=== PATIENT | female | born 1960 | race Caucasian/White ===

== ENCOUNTER 2017-02-13 23:50 | Inpatient (IN) | payer BC ==
--- NOTE | ~2017-02-13 | DS ---
Discharge Summary [facility] [address] [place]. [address] NAME: NILDA GUNN : 58 STATUS : DIS IN PAT#: [id number] AGE: 56 ADM/REG DATE : 02/13/17 MR#: [id number] REPORT SERV DATE: 02/20/17 DICTATED BY: ROSEANNA DHALIWAL DATE: 02/19/17 REPORT STATUS : Draft TRANSCRIBED BY: MODL DATE: 02/19/17 ADMISSION DATE: 02/13/2017 DISCHARGE DATE: 02/19/2017 REASON FOR ADMISSION: Sepsis secondary to Klebsiella pneumonia bacteremia possibly due to community-acquired pneumonia. HISTORY OF PRESENT ILLNESS: Please refer to Dr. Triston Altamirano's history and physical dated 02/14/2017 for complete details regarding the patient's admission. In brief, the patient was admitted to the Hospitalist Service for management of her sepsis and bacteremia. HOSPITAL COURSE: The patient had an uncomplicated hospital course. She was hospitalized about two months ago for SIRS, but no clear source of infection was identified. She was discharged in a stable condition. She returned about two months later. Chest x-ray in the ER did not demonstrate any infectious etiology. She had a CT angio of her chest, which showed several nonspecific nodules. Recommended three to six-month followup on the right along with cardiomegaly. There was no pulmonary embolism. The preliminary report was interpreted as multifocal infection. The patient was started on IV antibiotics. Blood cultures were obtained, which demonstrated Klebsiella pneumoniae, 2/[address] Tang was consulted and recommended turning her antibiotics to IV Ancef. She also had a CT scan of her abdomen and pelvis to determine if the origin of her Klebsiella was from a GI or source and the CT scan showed some minimal nonspecific infiltrate in the lingular region. There is otherwise no acute GI process. A urinalysis done on 02/13/2017 did not demonstrate any signs of infection. A PICC line was placed and Dr. Tang recommended continuing IV Ancef every eight hours until 02/26/2017. The patient also had issues with blood pressure control along with acute kidney injury. She was volume resuscitated. Her JC had resolved. Her sugars are all over the place. She did have an A1c of around 13%. She does have a known history of noncompliance with medications. She has reached maximal hospitalization, will be discharged home to complete IV antibiotics until 02/26/2017. DISCHARGE DIAGNOSES: 1. Sepsis secondary to Klebsiella pneumoniae bacteremia possibly due to a lingular pneumonia. 2. Chronic systolic heart failure that is compensated with an EF of 40% to 45%. 3. Acute kidney injury, now resolved. 4. Poorly-controlled insulin-dependent diabetes, A1c of around 14.5%. 5. Morbid obesity. 6. Medical noncompliance. PROCEDURES: Include CT scan of the abdomen and pelvis. CT angio of the chest. Consultation with Dr. Tang. PICC line placement. DISCHARGE MEDICATIONS: Include aspirin 81 mg once a day, Lipitor 40 mg at bedtime, Bumex 2 mg twice a day, carvedilol 3.125 mg twice a day, Ancef 2 g every eight hours to be completed on 02/26/2017, insulin Levemir 40 units at bedtime, insulin aspart 20 units before meals Discharge Summary [address] [address] NAME: NILDA GUNN : 58 STATUS : DIS IN PAT#: [id number] AGE: 56 ADM/REG DATE : 02/13/17 MR#: [id number] REPORT SERV DATE: 02/20/17 DICTATED BY: ROSEANNA DHALIWAL DATE: 02/19/17 REPORT STATUS : Draft TRANSCRIBED BY: MILA DATE: 02/19/17 along with p.r.n. snacks, magnesium oxide 400 mg once a day, potassium chloride 20 mEq twice a day, metformin 1000 mg twice a day, artificial tears. FOLLOWUP: The patient will follow up with [facility] for outpatient care on Thursday as initially scheduled and will continue her home IV antibiotics until 02/26/2017. Spending over 30 minutes in discharge planning and coordination of care on this patient. ISMAEL/MILA Roseanna Dhaliwal MD / [id number] CC: Roseanna Dhaliwal MD
--- NOTE | ~2017-02-13 | CN ---
Consultation Report [facility] [address] [place]. [address] NAME: NILDA GUNN : 58 STATUS : ADM Olesya PAT#: [id number] AGE: 56 ADM/REG DATE : 02/13/17 MR#: [id number] REPORT SERV DATE: 02/14/17 DICTATED BY: MARLEN DIGGS DATE: 02/14/17 REPORT STATUS : Draft TRANSCRIBED BY: MODDev DATE: 02/14/17 INFECTIOUS DISEASE CONSULTATION DATE OF CONSULTATION: REASON FOR REFERRAL: Evaluation and treatment of possible pneumonia. HISTORY OF PRESENT ILLNESS: The patient is a 56-year-old female. She has a history in the past of hypertension; diabetes mellitus; coronary artery disease, for which she had coronary artery bypass grafting; congestive heart failure; peripheral vascular disease; chronic obstructive pulmonary disease; heavy tobacco abuse for many years, but stopped in 2014. She was here with a Klebsiella pneumoniae in December of this year. She states she began to feel sick again a few days ago with much the same onset she had in December, but sought medical attention sooner this time. She had been sick for a couple of days with fevers as high as 103 degrees by her thermometer at home, increasing cough and shortness of breath. She had no severe headache, no difficulty swallowing. She was coughing up small amounts of sputum, no blood. No nausea, vomiting, diarrhea, abdominal cramping, dysuria, joint pain, skin lesions or rashes. She was seen in the ER. She had a white blood cell count of 10 and unremarkable differential. Temperature max here so far has been 99. Chest x-ray did not show a clear evidence of infiltrates. A CT scan was done to make sure that this is not embolic disease and it showed several nonspecific nodules, several millimeters, mainly on the right. No evidence of pulmonary embolus and no clear evidence of infiltrates. She has been started empirically on Rocephin and azithromycin. She lives in this area with her daughter, who has not been ill. She no longer smokes as previously mentioned. She has not traveled and has a cat, but no other animal exposure. No heavy dust exposure, essentially no unusual environmental exposures. PAST MEDICAL HISTORY: Otherwise, unremarkable. MEDICATIONS: As mentioned above. ALLERGIES: SHE HAS NO KNOWN ANTIMICROBIAL ALLERGIES. SOCIAL HISTORY: She as stated lives at home with her daughter, single. No longer smokes. There is no history of alcohol or substance abuse. FAMILY HISTORY: Noncontributory. PHYSICAL EXAMINATION: GENERAL: Mildly ill-appearing, adult female, in no acute distress. She is alert and oriented x3. VITAL SIGNS: Temperature max here as stated has been 99, which it is now; pulse 95; respirations 14; blood pressure 120/55; weight 115 kg. HEENT: Sclerae clear. No oral lesions. Consultation Report [address] [place]. [address] NAME: NILDA GUNN : 58 STATUS : ADM Olesya PAT#: [id number] AGE: 56 ADM/REG DATE : 02/13/17 MR#: [id number] REPORT SERV DATE: 02/14/17 DICTATED BY: MARLEN DIGGS DATE: 02/14/17 REPORT STATUS : Draft TRANSCRIBED BY: MILA DATE: 02/14/17 NECK: Supple without lymphadenopathy or meningeal signs. LUNGS: There are crackles heard in the lower third of her lungs bilaterally. HEART: Regular rate and rhythm. ABDOMEN: Soft and nontender. Positive bowel sounds. EXTREMITIES: Without clubbing, cyanosis, or edema. No swollen, red, or hot joints. No skin lesions or rashes. LABORATORY DATA: White count 10.1, hematocrit 34.3, platelets 157. Unremarkable differential on the white count. BUN and creatinine 16 and 1.01. IMPRESSION: Possible pneumonia, community acquired if so, though the objective data thus far is quite underwhelming. A procalcitonin and urine antigens for Legionella and pneumococcus have been ordered by Pulmonary already and are still pending. She does certainly have a history of pneumonia and sepsis associated with it, so I would not disregard this at this point, and I think the correct thing is to treat it pending more information. RECOMMENDATIONS: 1. I think Rocephin and azithromycin are reasonable empiric coverage, she will continue those. 2. Follow up the previously mentioned tests along with her blood cultures. 3. Follow the patient with you. I appreciate very much your consulting on this patient. CARITO Marlen Diggs M.D. / [id number] CC: Andi Boone Jr, MD
--- NOTE | ~2017-02-13 | CN ---
Consultation Report [facility] [address] [place]. [address] NAME: NILDA GUNN : 58 STATUS : ADM Olesya PAT#: [id number] AGE: 56 ADM/REG DATE : 02/13/17 MR#: [id number] REPORT SERV DATE: 02/14/17 DICTATED BY: TED HMAMER DATE: 02/14/17 REPORT STATUS : Draft TRANSCRIBED BY: MILA DATE: 02/14/17 CONSULTATION DATE OF CONSULTATION: HISTORY OF PRESENT ILLNESS: This is a 56-year-old white female who comes to the hospital because of shortness of breath and subjective fever. She states that she had a fever on more than one occasion at home as high as 103. The patient was recently in the hospital back in December 2016 and treated for systemic inflammatory response syndrome versus sepsis. Back in December, she did grow out Klebsiella pneumoniae in blood culture, and she was treated with Rocephin and azithromycin at that time. Other symptoms include some productive cough with haley-looking phlegm, but no chest pain or wheezing. She has a clinical diagnosis of COPD but has never had a pulmonary function study and is not on any oxygen or inhalers at home. She denies any sick contacts, being around animals, recent travel, or other exposures. Her white blood cell count was not elevated on admission, and she did not have any evidence of an eosinophilia. Her BNP was low at 285, and her flu swab was negative. She did have a CTA of her chest. It does show some nonspecific nodules of the lung - 4 mm in the right upper lobe and 6 mm in the right middle lobe. No evidence of pulmonary embolism, but there were some nonspecific infiltrative findings on the lung dillard. REVIEW OF SYSTEMS: She does have known rigors, but no nausea vomiting, abdominal pain, or diarrhea. She does have some leg swelling. It has been worse since she has not been taking her diuretics in the past few days. She does have some headache, but no syncope or seizure. PAST MEDICAL HISTORY: Type 2 diabetes, coronary artery disease with CABG, systolic CHF, peripheral vascular disease, obesity, anxiety, depression, history of septic knee arthritis, possible COPD, and left groin abscess. PAST SURGICAL HISTORY: Bilateral iliac stents, tonsillectomy, lumbar laminectomy, , cholecystectomy, tonsillectomy, left knee surgery, left wrist, and CABG. ALLERGIES: GLYBURIDE, GLIPIZIDE, SIMVASTATIN, AND ASPIRIN. MEDICATIONS: Reviewed. SOCIAL HISTORY: Former heavy smoker, 40 to 45 years, as much as a pack a day, but quit back in 2014. No alcohol or illicit drugs. FAMILY HISTORY: Coronary artery disease and breast cancer in the mother. Father had bladder cancer. Siblings had coronary artery disease. LABORATORY DATA: Reviewed. Also reviewed recent CT scans with my own interpretation. Consultation Report [address] [place]. [address] NAME: NILDA GUNN : 58 STATUS : ADM Olesya PAT#: [id number] AGE: 56 ADM/REG DATE : 02/13/17 MR#: [id number] REPORT SERV DATE: 02/14/17 DICTATED BY: TED HAMMER DATE: 02/14/17 REPORT STATUS : Draft TRANSCRIBED BY: MILA DATE: 02/14/17 ASSESSMENT AND PLAN: 1. Subjective fever. 2. Possible pneumonia. 3. Subcentimeter lung nodules. 4. Possible chronic obstructive pulmonary disease. 5. History of heavy tobacco abuse. It is reasonable to put the patient on Rocephin and azithromycin empirically based on her symptoms at home. However, she does not have a leukocytosis, and her CT scan is somewhat underwhelming. If there is infiltrate suggestive of pneumonia, it is very subtle. We will check a procalcitonin level today. Also check urine antigen for Streptococcus and Legionella. She is on DuoNeb aerosols, possibly would benefit from outpatient pulmonary function testing. She will also need followup CT scan as an outpatient to follow up the lung nodules. CEP/MODL Ted Hammer DO / [id number] CC: Andi Boone Jr, MD
--- NOTE | ~2017-02-13 | HP ---
History And Physical [facility] [address] [place]. [address] NAME: NILDA GUNN : 58 STATUS : ADM Olesya PAT#: [id number] AGE: 56 ADM/REG DATE : 02/13/17 MR#: [id number] REPORT SERV DATE: 02/14/17 DICTATED BY: DEION BARRAGAN DATE: 02/14/17 REPORT STATUS : Draft TRANSCRIBED BY: MILA DATE: 02/14/17 DATE OF ADMISSION: 02/13/2017 CHIEF COMPLAINT: A 56-year-old female presenting with increasing shortness of breath. HISTORY OF PRESENT ILLNESS: The patient's history was obtained through careful interview with the patient, coupled with review of [facility] and [facility] medical records. The patient states that she has had a minimally productive cough for about one month, but then over the last three or four days, it has really increased. She describes a fever up to 103.1 and 102.8 at home with chills. This prompted her to come into the hospital. She denies any chest pain, but she has had a headache at the back of her head, an aching quality, 6/10 severity that is "on and off." It was not until the day of admission that she developed dyspnea on exertion, although she has been bothered by the cough that has never really caused shortness of breath until now. She has chronic lower extremity edema, but it has been worsening recently, but she admits that she stopped taking her chronic daily diuretic over the last three or four days because she was feeling so ill. The patient also admits that she has stopped taking her insulin for diabetes and has not been regularly checking her sugars because she has been feeling ill. She has had a poor appetite with nausea, but no vomiting. No diarrhea. No abdominal pain or distention. REVIEW OF SYSTEMS: Otherwise, a 14-point review of systems was obtained and was negative. PAST MEDICAL HISTORY: 1. Diabetes. 2. COPD. 3. Coronary artery disease, status post CABG. Followed by Dr. Katz. 4. Pneumonia. 5. Hypertension. 6. Systolic congestive heart failure. Ejection fraction 45%. 7. Septic left knee. 8. Left groin abscess. 9. Peripheral arterial disease, status post bilateral iliac stents. 10.MRSA. 11.Pulmonary embolism in 2012 after back surgery. PAST SURGICAL HISTORY: 1. CABG in 2015. History And Physical [address] [place]. [address] NAME: NILDA GUNN : 58 STATUS : ADM Olesya PAT#: [id number] AGE: 56 ADM/REG DATE : 02/13/17 MR#: [id number] REPORT SERV DATE: 02/14/17 DICTATED BY: DEION BARRAGAN DATE: 02/14/17 REPORT STATUS : Draft TRANSCRIBED BY: MILA DATE: 02/14/17 2. Lumbar spine surgery. 3. x2. 4. Left knee surgery. 5. Cholecystectomy. 6. Left wrist surgery. 7. Right ear surgery. ALLERGIES: ASPIRIN, SIMVASTATIN, GLYBURIDE. SOCIAL HISTORY: Quit smoking. No alcohol abuse. 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 She has two daughters. FAMILY HISTORY: Significant for Alzheimer dementia, mother with breast cancer and heart disease, father with bladder cancer, siblings with heart disease. CURRENT MEDICATIONS: Include aspirin 81 mg p.o. daily; Lipitor 40 mg p.o. daily; Bumex 2 mg p.o. b.i.d., although has been noncompliant; Coreg 3.125 mg p.o. b.i.d.; NovoLog 20 units subcutaneous before meals, but has been noncompliant; Levemir 40 units subcutaneous at bedtime, but has been noncompliant; magnesium 400 mg p.o. daily; metformin 1000 mg p.o. b.i.d.; potassium 20 mEq p.o. b.i.d., when she takes her diuretic. PHYSICAL EXAMINATION: VITAL SIGNS: Temperature 99.0, pulse 116, blood pressure 137/71, respiratory rate 20, O2 saturation 93% on room air. GENERAL: An ill-appearing, female, but in no acute distress. No labored respiratory effort. HEENT: Pupils equal, round, and reactive to light. No conjunctival pallor. No scleral icterus. Nares are patent. Oropharynx is clear of obstruction. Moist mucous membranes. NECK: Trachea midline. No thyromegaly. LYMPH: No cervical lymphadenopathy. No supraclavicular lymphadenopathy. RESPIRATORY: The patient has scattered rhonchi on exam, but not too severe at exam. She does not have any appreciable rales currently. No wheezes. She has a nonlabored respiratory effort and actually seems quite comfortable. CARDIOVASCULAR: Tachycardic, regular rhythm. No murmurs, rubs, or gallops. The patient does have bilateral pitting lower extremity edema from her knees downward that is tight and deeply pitting and symmetrical. ABDOMEN: Soft, nontender, nondistended. Normal bowel sounds auscultated throughout. No hepatosplenomegaly. DERMATOLOGIC: Warm and dry. EXTREMITIES: No pallor. No cyanosis. PSYCHIATRIC: Normal affect. Good mood. Alert and oriented x3. LABORATORY DATA: White blood cell count 10, hemoglobin 12, hematocrit 34, platelets 157. Sodium 131, potassium 4.4, chloride 96, bicarb 25, BUN 16, creatinine 1.0, glucose 520. Brain natriuretic peptide 285. Troponin 0.07. Influenza negative. INR 1.2. Urinalysis negative for infection. History And Physical [address] [address] NAME: NILDA GUNN : 58 STATUS : ADM Olesya PAT#: [id number] AGE: 56 ADM/REG DATE : 02/13/17 MR#: [id number] REPORT SERV DATE: 02/14/17 DICTATED BY: DEION BARRAGAN DATE: 02/14/17 REPORT STATUS : Draft TRANSCRIBED BY: MILA DATE: 02/14/17 STUDIES: 1. EKG by my own evaluation shows sinus tachycardia and premature atrial complexes, right axis deviation. 2. CT scan of the chest shows irregular multifocal nodular and lobular ground-glass opacities suspicious for an atypical pneumonia or infectious process. ASSESSMENT AND PLAN: 1. Pulmonary infiltrates with a cough for about a month. Fevers reported. We will obtain a pulmonary consult. Wonder if they appreciate to consider bronchoscopy? Obtain infectious disease consult to guide antibiotics. The patient has a normal white blood cell count. The patient has received azithromycin and Rocephin on the morning of admission in the emergency department. We will defer further antibiotics to the Infectious Disease physician. 2. Systolic congestive heart failure exacerbation brought on by poor compliance with medications. Has been skipping diuretics and other medications. Continue the patient's home Coreg. Place on IV diuretics for now. Add TARA inhibitors as tolerated. Recheck an echocardiogram with history of ejection fraction of 40%. 3. Uncontrolled diabetes. Check hemoglobin A1c. We will obtain a para educator consult. The patient has very poor compliance with her insulin and she admits to it. We will try to resume patient's basal insulin at a higher dose. Continue premeal insulin and aggressive sliding scale insulin and see if the patient's elevated blood sugar initially responds to this medication or if we need to be more aggressive from that. 4. Chronic obstructive pulmonary disease. On duo nebulizers. MOLLYL/MODL Deion Barragan M.D. / [id number] CC: Mirna Summers M.D.
[2017-02-13 22:55] LABS: ASCORBIC ACID (UR NOT ORDER) NEG (NEG); BASOPHILS 0.2 %; BASOPHILS ABSOLUTE 0.02 10/3/uL (0.0-0.16); BILIRUBIN, URINE NEGATIVE (NEG); EOSINOPHILS 0.1 %; EOSINOPHILS ABSOLUTE 0.01 10/3/uL (0.0-0.53); ER CBC TAT 0 Hrs 10 Mins; ER URINALYSIS TAT 0 Hrs 10 Mins; HEMATOCRIT 34.3 % (36.0-48.0); HEMOGLOBIN 11.6 g/dL (12.0-16.0); IMMATURE GRANULOCYTES 0.1 %; IMMATURE GRANULOCYTES ABSOLUTE 0.01 10/3/uL (0.0-0.11); KETONE, URINE NEGATIVE (NEG); LEUKOCYTE ESTERASE(NOT OR NEG (NEG); LYMPHOCYTES 8.5 %; LYMPHOCYTES ABSOLUTE 0.85 10/3/uL (0.67-4.30); MANUAL DIFF NO %; MEAN CORPUS HGB CONC 33.8 g/dL (32.0-36.0); MEAN CORPUSCULAR HEMOGLOB 31.7 pg (26.0-34.0); MEAN CORPUSCULAR VOLUME 93.7 fL (80-100); MONOCYTES 7.9 %; MONOCYTES ABSOLUTE 0.79 10/3/uL (0.21-1.20); NEUTROPHILS 83.2 %; NEUTROPHILS ABSOLUTE 8.37 10/3/uL (2.02-8.40); NITRITE (URINE) NEG (NEG); PLATELET COUNT 157 10/3/uL (150-400); RBC DISTRIBUTION WIDTH 14.1 % (12.0-16.0); RED CELL COUNT 3.66 10/6/uL (4.0-5.6); WBC (NOT ORDERED) (RFLEX) 3 (0-5); WHITE BLOOD CELLS 10.1 10/3/uL (4.5-10.5)
[2017-02-13 22:58] LABS: INTERNATIONAL NORMAL RATI 1.2 UNITS (-); PARTIAL THROMBO TIME 27.4 SEC (22.5-37.2)
[2017-02-13 23:00] LABS: INFLUENZA A SCREEN NEGATIVE (NEGATIVE); INFLUENZA B SCREEN NEGATIVE (NEGATIVE)
[2017-02-13 23:24] LABS: CALCIUM, SERUM 7.8 MG/DL (8.5-10.4); CHLORIDE, SERUM 96 MMOL/L (96-112); CO2 (CARBON DIOXIDE) 25 MMOL/L (24-34); CREATININE 1.01 MG/DL (0.55-1.02); GFR AFRICAN AMERICAN 72 ML/MIN (>=60); GFR NON AFRICAN AMERICAN 62 ML/MIN (>=60); POTASSIUM, SERUM 4.4 MMOL/L (3.5-5.3)
[2017-02-13 23:25] LABS: BUN (BLOOD UREA NITROGEN) 16 MG/DL (6-23); CHEST PAIN PROFILE TAT 0 Hrs 40 Mins; GLUCOSE, SERUM 520 MG/DL (60-99); SODIUM, SERUM 131 MMOL/L (135-148); TROPONIN I 0.07 NG/ML (<0.05)
[~2017-02-13 23:50] MED LIST: ADVIL PO; ALBUTEROL5 INH; ALTA2.5 PO; ALTACE10 MG PO; AMARYL4 PO; ASAB PO; ASAEC PO; ATV.5 PO; ATV1 PO; BUM1 PO; C5 PO; CEFT5 PO; CINNAMON PO; CIP5 PO; COREG25 PO; COREG3 PO; COREG6 PO; DORYX100 MG PO; DURICEF PO; FISH OIL1200 MG PO; FLEX PO; FLORASTOR250 MG PO; GLUCOPHAGE1000 MG PO; HALF81 PO; HUMALOG SC; HUMALOGMIX SC; HUMAMIXPEN SC; HUMI PO; HUMULIN N1 ML SC; IBU800 PO; IMDUR30 PO; INSNOV7030 SC; INSNOVN SC; JANUMET1 TA1 PO; K500 PO; KLOR-CON M2020 MEQ PO; L20 PO; L40 PO; LANTUS SC; LEVAQUIN750 MG PO; LEVEMFLXPN SC; LEVEMIR SC; LIPITOR10 PO; LIPITOR40 PO; LOP25 PO; LOVENOX120 SC; MAGNESIUM OTC PO; MAGOX4 PO; METHOC750B PO; MULTIVITAMI1 PO; MYCOSCROI T; NEUR300 PO; NEUR600 PO; NITROQUICK0.4 MG SL; NITROSTAT0.4 MG SL; NORCO1 TA1 PO; NOVOLOG SC; NOVOPEN SC; NTG150 SL; OTC EYE DROPS OPH; OXYCOD PO; PERCOCET1 TA2 PO; PLAVIX PO; PR25 PO; PRIN10 PO; PRIN2.5 PO; PRISTIQ50 MG PO; PROAIR HFA INH; REFRESH OPH; SEPTRA DS1 TAB PO; TOPXL25 PO; TOUJEO SC; VITAMIN D OTC PO; VITAMIN D31000 UNIT PO; ZESTRIL10 MG PO; ZOCOR20 PO; ZYVOXPO PO
[2017-02-14 01:10] LABS: BE (BASE EXCESS) -1.8 MEQ/L (0 +/- 2.5); CARBOXYHEMOGLOBIN 1.7 % (0-3); HCO3 (ACTUAL BICARBONATE) 20.8 MEQ/L (23-27); HEMOBLOGIN CONTENT 12.1 G/DL (12-16); INSTRUMENT SERIAL # 8087; METHEMOGLOBIN 0.2 % (0-3); O2 CONTENT 15.6 VOL% (18-24); OPERATOR ID 17589; PCO2 (CO2 TENSION) 29 MMHG (35-45); PO2 (O2 TENSION) 64 MMHG (79-93); SAMPLE Arterial; pH 7.47 (7.37-7.43)
[2017-02-14 02:14] LABS: D-DIMER QUANTITATIVE 1.97 ug/mLFEU (< 0.50)
[2017-02-14] MEDS ORDERED: REFRESH OPH SO0.3 ML OPH (05:48)
[2017-02-14 12:19] LABS: BASOPHILS 0.3 %; BASOPHILS ABSOLUTE 0.02 10/3/uL (0.0-0.16); EOSINOPHILS 0.7 %; EOSINOPHILS ABSOLUTE 0.05 10/3/uL (0.0-0.53); HEMATOCRIT 31.4 % (36.0-48.0); HEMOGLOBIN 10.7 g/dL (12.0-16.0); IMMATURE GRANULOCYTES 0.1 %; IMMATURE GRANULOCYTES ABSOLUTE 0.01 10/3/uL (0.0-0.11); LYMPHOCYTES 28.2 %; LYMPHOCYTES ABSOLUTE 2.13 10/3/uL (0.67-4.30); MEAN CORPUS HGB CONC 34.1 g/dL (32.0-36.0); MEAN CORPUSCULAR HEMOGLOB 31.8 pg (26.0-34.0); MEAN CORPUSCULAR VOLUME 93.5 fL (80-100); MONOCYTES 6.5 %; MONOCYTES ABSOLUTE 0.49 10/3/uL (0.21-1.20); NEUTROPHILS 64.2 %; NEUTROPHILS ABSOLUTE 4.84 10/3/uL (2.02-8.40); PLATELET COUNT 148 10/3/uL (150-400); RBC DISTRIBUTION WIDTH 13.9 % (12.0-16.0); RED CELL COUNT 3.36 10/6/uL (4.0-5.6); WHITE BLOOD CELLS 7.5 10/3/uL (4.5-10.5)
[2017-02-14 12:23] LABS: MANUAL DIFF NO %
[2017-02-14 12:27] LABS: INTERNATIONAL NORMAL RATI 1.2 UNITS (-); PARTIAL THROMBO TIME 32.1 SEC (22.5-37.2); PROTIME (NOT ORD) 15.4 SEC (12.0-14.5)
[2017-02-14 12:37] LABS: A/G RATIO 0.6 (0.7-1.9); ALBUMIN 2.4 G/DL (3.5-5.0); BUN (BLOOD UREA NITROGEN) 21 MG/DL (6-23); CALCIUM, SERUM 7.9 MG/DL (8.5-10.4); CHLORIDE, SERUM 102 MMOL/L (96-112); CO2 (CARBON DIOXIDE) 24 MMOL/L (24-34); GFR AFRICAN AMERICAN 58 ML/MIN (>=60); GFR NON AFRICAN AMERICAN 50 ML/MIN (>=60); GLOBULIN 3.7 G/DL (2.5-4.1); POTASSIUM, SERUM 3.7 MMOL/L (3.5-5.3); SGOT(AST) 26 U/L (5-40); SGPT(ALT) 32 U/L (5-65); SODIUM, SERUM 136 MMOL/L (135-148); TOTAL BILIRUBIN 0.5 MG/DL (0-1.2); TOTAL PROTEIN 6.1 G/DL (6.0-8.5)
[2017-02-14 12:38] LABS: ALKALINE PHOSPHATASE 92 U/L (45-117); GLUCOSE, SERUM 277 MG/DL (60-99); TROPONIN I 0.05 NG/ML (<0.05); ULTRASENSITIVE TSH 0.419 MCIU/ML (0.358-3.740)
[2017-02-14 12:55] LABS: B NATRIURETIC PEPTIDE (BNP) 295.7 PG/ML (< 100.0)
[2017-02-14 13:09] LABS: PROCALCITONIN 0.38 ng/mL (<0.5)
[2017-02-15 08:01] LABS: GLYCOHEMOGLOBIN (HbA1c) 14.5 % (4.7-6.1)
[2017-02-16 05:30] LABS: CALCIUM, SERUM 8.1 MG/DL (8.5-10.4); CHLORIDE, SERUM 101 MMOL/L (96-112); CO2 (CARBON DIOXIDE) 25 MMOL/L (24-34); GFR AFRICAN AMERICAN 44 ML/MIN (>=60); GFR NON AFRICAN AMERICAN 38 ML/MIN (>=60); GLUCOSE, SERUM 278 MG/DL (60-99); POTASSIUM, SERUM 4.3 MMOL/L (3.5-5.3); SODIUM, SERUM 137 MMOL/L (135-148)
[2017-02-16 05:34] LABS: BUN (BLOOD UREA NITROGEN) 35 MG/DL (6-23)
[2017-02-17 05:03] LABS: BUN (BLOOD UREA NITROGEN) 34 MG/DL (6-23); CALCIUM, SERUM 8.2 MG/DL (8.5-10.4); CHLORIDE, SERUM 102 MMOL/L (96-112); CO2 (CARBON DIOXIDE) 29 MMOL/L (24-34); CREATININE 1.24 MG/DL (0.55-1.02); GFR AFRICAN AMERICAN 56 ML/MIN (>=60); GFR NON AFRICAN AMERICAN 48 ML/MIN (>=60); GLUCOSE, SERUM 318 MG/DL (60-99); POTASSIUM, SERUM 4.6 MMOL/L (3.5-5.3); SODIUM, SERUM 140 MMOL/L (135-148)
[2017-02-19] MEDS ORDERED: CEFAZ1 IV (10:02)
== END 2017-02-19 14:59 | disposition home health service (06) | DRG 871 ==
LOC: ER 23:50 → CDU1 23:59 → CDU2 02-14 06:55 → 7NO 02-15 11:56
PROVIDERS: Emergency Medicine; Hospitalist; Internal Medicine; Specialist
PROC: 02HV33Z Insertion of Infusion Device into Superior Vena Cava, Percutaneous Approach (ICD-10-PCS; principal; 2017-02-18)
PROC: 4A02X4A Measurement of Cardiac Electrical Activity, Guidance, External Approach (ICD-10-PCS; 2017-02-18)
DX: A41.59 Other Gram-negative sepsis (principal); J18.9 Pneumonia, unspecified organism; N17.9 Acute kidney failure, unspecified; I50.22 Chronic systolic (congestive) heart failure; Z68.41 Body mass index [BMI] 40.0-44.9, adult; E11.65 Type 2 diabetes mellitus with hyperglycemia; J44.9 Chronic obstructive pulmonary disease, unspecified; B96.1 Klebsiella pneumoniae [K. pneumoniae] as the cause of diseases classified elsewhere; E66.01 Morbid (severe) obesity due to excess calories; I25.10 Atherosclerotic heart disease of native coronary artery without angina pectoris; R91.8 Other nonspecific abnormal finding of lung field; F41.9 Anxiety disorder, unspecified; F32.9 Major depressive disorder, single episode, unspecified; Z95.1 Presence of aortocoronary bypass graft; Z87.891 Personal history of nicotine dependence; Z79.82 Long term (current) use of aspirin; Z91.14 Patient's other noncompliance with medication regimen; Z79.4 Long term (current) use of insulin; Z82.49 Family history of ischemic heart disease and other diseases of the circulatory system; Z80.3 Family history of malignant neoplasm of breast; Z80.52 Family history of malignant neoplasm of bladder; Z88.8 Allergy status to other drugs, medicaments and biological substances; Z88.6 Allergy status to analgesic agent
CPT/HCPCS: 36569; 36600; 71020; 71275; 74178; 80048; 80053; 81001; 82805; 82962; 83036; 83735; 83880; 84145; 84443; 84484; 85025; 85379; 85610; 85730; 87040; 87077; 87150; 87186; 87449; 87804; 93005; 94640; 96365; 96375; 99285; A9270-GY; C1751; G0463; J0456; J0690; J1940; J1956; J2543; Q9967

== ENCOUNTER 2017-02-25 18:02 | Emergency (ER) | payer BC ==
[~2017-02-25 18:02] MED LIST changes: +CEFAZ1 IV; +REFRESH OPH SO0.3 ML OPH
[2017-02-25 21:51] LABS: HEMATOCRIT 34.5 % (36.0-48.0); HEMOGLOBIN 11.4 g/dL (12.0-16.0); MEAN CORPUSCULAR HEMOGLOB 31.9 pg (26.0-34.0); MEAN CORPUSCULAR VOLUME 96.6 fL (80-100); MEAN PLATELET VOLUME 11.6 fL (9.2-13.0); PLATELET COUNT 331 10/3/uL (150-400); RBC DISTRIBUTION WIDTH 14.1 % (12.0-16.0); RED CELL COUNT 3.57 10/6/uL (4.0-5.6); WHITE BLOOD CELLS 8.9 10/3/uL (4.5-10.5)
[2017-02-25 21:52] LABS: MANUAL DIFF YES %
[2017-02-25 21:59] LABS: ASCORBIC ACID (UR NOT ORDER) NEG (NEG); BILIRUBIN, URINE NEGATIVE (NEG); ER URINALYSIS TAT 0 Hrs 12 Mins; KETONE, URINE NEGATIVE (NEG); LEUKOCYTE ESTERASE(NOT OR NEG (NEG); NITRITE (URINE) NEG (NEG); WBC (NOT ORDERED) (RFLEX) 1 (0-5)
[2017-02-25 22:10] LABS: BUN (BLOOD UREA NITROGEN) 28 MG/DL (6-23); CALCIUM, SERUM 8.7 MG/DL (8.5-10.4); CHLORIDE, SERUM 102 MMOL/L (96-112); CO2 (CARBON DIOXIDE) 31 MMOL/L (24-34); CREATININE 0.94 MG/DL (0.55-1.02); GFR AFRICAN AMERICAN 78 ML/MIN (>=60); GFR NON AFRICAN AMERICAN 67 ML/MIN (>=60); POTASSIUM, SERUM 4.3 MMOL/L (3.5-5.3); SGOT(AST) 12 U/L (5-40); SGPT(ALT) 11 U/L (5-65); SODIUM, SERUM 141 MMOL/L (135-148); TOTAL BILIRUBIN 0.2 MG/DL (0-1.2); TOTAL PROTEIN 6.9 G/DL (6.0-8.5)
[2017-02-25 22:11] LABS: A/G RATIO 0.7 (0.7-1.9); ALBUMIN 2.9 G/DL (3.5-5.0); ALKALINE PHOSPHATASE 125 U/L (45-117); GLUCOSE, SERUM 351 MG/DL (60-99)
[2017-02-25 22:14] LABS: INFLUENZA A SCREEN NEGATIVE (NEGATIVE); INFLUENZA B SCREEN NEGATIVE (NEGATIVE)
[2017-02-25 22:48] LABS: SEGMENTED NEUTROPHIL (0) 69 %; TOTAL NUCLEATED CELLS 100
[2017-02-25 22:49] LABS: BAND NEUTROPHILS 4 %; EOSINOPHILS 2 %; EOSINOPHILS ABSOLUTE (CALC) 0.18 10/3/uL (0.0-0.53); ER DIFF TAT 1 Hrs 01 Mins; LYMPHOCYTES 24 %; LYMPHOCYTES ABSOLUTE (CALC) 2.14 10/3/uL (0.67-4.30); MONOCYTES 1 %; MONOCYTES ABSOLUTE (CALC) 0.09 10/3/uL (0.21-1.20); PLATELET ESTIMATE ADQ (ADEQUATE)
[2017-02-25 22:50] LABS: RBC MORPHOLOGY NORM (NORMAL)
== END 2017-02-26 00:43 | disposition home or self-care (01) ==
LOC: ER 18:02
PROVIDERS: Emergency Medicine
DX: R23.8 Other skin changes (principal); E11.9 Type 2 diabetes mellitus without complications; J44.9 Chronic obstructive pulmonary disease, unspecified; I11.0 Hypertensive heart disease with heart failure; I50.9 Heart failure, unspecified; Z87.01 Personal history of pneumonia (recurrent); Z95.1 Presence of aortocoronary bypass graft; Z87.891 Personal history of nicotine dependence; Z88.6 Allergy status to analgesic agent; Z88.8 Allergy status to other drugs, medicaments and biological substances; Z79.4 Long term (current) use of insulin; Z79.82 Long term (current) use of aspirin; Z79.899 Other long term (current) drug therapy
CPT/HCPCS: 71010; 80053; 81001; 85025; 87040; 87804; 96374; 99284; A9270-GY

== ENCOUNTER 2017-04-19 12:39 | Inpatient (IN) | payer BC ==
--- NOTE | ~2017-04-19 | HP ---
History And Physical [facility] [address] [place]. [address] NAME: KARRIE CARDONA : 58 STATUS : ADM IN [facility]#: [id number] AGE: 56 ADM/REG DATE : 04/19/17 MR#: [id number] REPORT SERV DATE: 04/20/17 DICTATED BY: FAMILIA WELSH DATE: 04/20/17 REPORT STATUS : Draft TRANSCRIBED BY: MODDev DATE: 04/20/17 DATE OF ADMISSION: 04/19/2017 DIAGNOSES: 1. Subacute thromboses of recently placed mid LAD stent secondary to noncompliance. 2. Non-STEMI. 3. History of chronic systolic heart failure. 4. Status post coronary bypass grafting, remote myocardial infarction. 5. History of hypertension. 6. History of dyslipidemia. 7. History of diabetes mellitus. PLAN: 1. Urgent catheterization. 2. Continue current medical interventions. 3. Medical counseling. HISTORY OF PRESENT ILLNESS: Karrie Cardona is a 56-year-old, female with a history of coronary disease status post coronary bypass graft remotely, status post previous myocardial infarction, history of chronic systolic heart failure, who has presented to this hospital. Of note, on 04/10, she underwent catheterization with subsequent placement of a drug-eluting stent to her mid LAD. Of note, the patient failed to retrieve her dual antiplatelet therapy. For the last 72 hours, she has been having chest pain. For this reason, she is now admitted for observation. Of note, I was called today to the emergency department, at which point in time, EKG by emergency room failed to reveal ST elevation. Of note, her troponin levels for this reason, she is now admitted for observation and heart catheterization. PAST MEDICAL HISTORY: As above. PAST SURGICAL HISTORY: Please see old chart. CURRENT MEDICATIONS: Xanax, Bumex 2 mg b.i.d., Coreg 6.25 b.i.d. NovoLog insulin, milk of magnesia, Levemir 22 units subcu b.i.d., and potassium chloride 20 mEq b.i.d. SOCIAL HISTORY: She does not smoke, drink, or do recreational drugs. FAMILY HISTORY: Noncontributory. REVIEW OF SYSTEMS: A 10-point review of systems is thoroughly reviewed, but noncontributory. PHYSICAL EXAMINATION: VITAL SIGNS: Blood pressure 120 systolic. NECK: Less than 7 cm JVP. Carotids are clear. LUNGS: Clear to auscultation and percussion. History And Physical [address] [place]. [address] NAME: KARRIE CARDONA : 58 STATUS : ADM IN PAT#: [id number] AGE: 56 ADM/REG DATE : 04/19/17 MR#: [id number] REPORT SERV DATE: 04/20/17 DICTATED BY: FAMILIA WELSH DATE: 04/20/17 REPORT STATUS : Draft TRANSCRIBED BY: MODL DATE: 04/20/17 CARDIAC: PMI is nondisplaced. S1, S2. EXTREMITIES: No edema. NEURO: Nonfocal. EKG shows normal sinus rhythm, normal axes, normal intervals. Borderline T-wave changes inferiorly. Her troponin level was 9. PLAN: Plan at this point in time, proceed to cardiac catheterization. We will plan current interventions based on heart cath. FERMÍN/MILA Familia Welsh M.D. / [id number] CC: Familia Welsh M.D.
--- NOTE | ~2017-04-19 | OP ---
Record Of [facility] [address] [place]. [address] NAME: KARRIE CARDONA : 58 STATUS : ADM IN PAT#: [id number] AGE: 56 ADM/REG DATE : 04/19/17 MR#: [id number] REPORT SERV DATE: 04/20/17 DICTATED BY: FAMILIA WELSH DATE: 04/19/17 REPORT STATUS : Draft TRANSCRIBED BY: MODL DATE: 04/19/17 DATE OF PROCEDURE: 04/19/2017 INDICATIONS: Nuz-ZQ-[id number] myocardial infarction, the patient had recent stent placement on 04/10/2017. She failed to retrieve her dual antiplatelet medical prescription by admittance today. Of note, she has been hurting for three days. Her troponin level currently is 9. BABY FORMULA WORKER: Familia Welsh M.D. APPROACH: Right common femoral artery. ANESTHESIA: IV sedation with catheterization protocol, local sedation with Xylocaine. COMPLICATIONS: None. ESTIMATED BLOOD LOSS: Less than 10 mL. ESTIMATED CONTRAST: Less than 300 mL. PROCEDURES PERFORMED: Left heart catheterization, left ventriculogram, selective coronary arteriography, saphenous vein graft harvest, and left internal mammary arteriography. OPERATIVE TECHNIQUE: Ms. Karrie Cardona was brought to the cath lab tech in a semi-emergent fashion. She was laid supine and the right arm was prepped and draped in the usual sterile fashion. 1% Xylocaine was infiltrated into right femoral vessel. Next, a 6-Italian sheath introduced into right common femoral artery via modified Seldinger technique. Selective coronary arteriography: Next, the right and left Cyndi diagnostic catheters were advanced into their respective ostia, and they were injected in multiple views. Next, a right coronary catheter was advanced to all saphenous vein grafts and to the left internal mammary, and they were injected in multiple views. LV-gram: Next, a pigtail catheter advanced across the aortic valve via the left ventricle approach. An LV gram was then performed with injection of 30 mL contrast at a rate of 15 mL/sec to a maximum pressure of 600 psi. At the end of procedure, both groins were stable. There was no hematoma noted. DIAGNOSES: The left end-diastolic pressure is approximately 20 to 25 mmHg. The central aortic pressure is approximately 110 to 120 mmHg. There was no gradient across the aortic valve on pullback. Record Of [facility] [address] [place]. [address] NAME: KARRIE CARDONA : 58 STATUS : ADM IN PAT#: [id number] AGE: 56 ADM/REG DATE : 04/19/17 MR#: [id number] REPORT SERV DATE: 04/20/17 DICTATED BY: FAMILIA WELSH DATE: 04/19/17 REPORT STATUS : Draft TRANSCRIBED BY: MILA DATE: 04/19/17 Selective coronary arteriography: The RCA is large and dominant. The RCA contains a long 50% diffuse proximal stenosis. The distal RCA contains a 90% stenosis. Of note, the posterolateral artery is moderate caliber and contains mild diffuse disease. The PDA contains mild diffuse disease. There is a medium-caliber saphenous vein graft to the PDA that is widely patent with excellent runoff. The left main contains mild diffuse disease. The left anterior descending contains a 40% to 50% diffuse proximal to mid stenosis. The left internal mammary is widely patent and anastomosed to a medium-caliber vessel. Just after this anastomosis, there was total occlusion of the previously placed stent. Of note, the first and second diagonals are small vessels that contain mild diffuse disease. The left circumflex is a medium-caliber vessel and there is a long diffuse 50% proximal to mid stenosis. The saphenous vein graft to the first obtuse marginal is widely patent with good runoff to a medium-caliber vessel. The second obtuse marginal contains moderate diffuse disease. IMPRESSION: 1. Multivessel coronary artery disease. 2. Mid left anterior descending, acutely occluded, recent occlusion of a previously placed stent. 3. Saphenous vein graft to the right coronary artery and saphenous vein graft to the obtuse marginal, two are patent. 4. Left internal mammary artery to the mid LAD is patent. Addendum: Left ventriculogram: The left ventriculogram demonstrates marked inferior wall as well as apical hypokinesis but ejection fraction is 30%. No significant mitral regurgitation is apparent. Addendum: Chronic mijupoyv-tb-mkckby left ventricular systolic dysfunction. RECOMMENDATIONS: 1. Continue medical interventions including Bumex and TARA inhibition. 2. Continuation of beta-blockade. 3. Risk-factor modification. 4. Diabetic management. FERMÍN/MILA Familia Welsh M.D. / [id number] CC: Record Of Operation [address] [place]. [address] NAME: KARRIE CARDONA : 58 STATUS : ADM IN PAT#: [id number] AGE: 56 ADM/REG DATE : 04/19/17 MR#: [id number] REPORT SERV DATE: 04/20/17 DICTATED BY: FAMILIA WELSH DATE: 04/19/17 REPORT STATUS : Draft TRANSCRIBED BY: MODDev DATE: 04/19/17 Familia Welsh M.D.
--- NOTE | ~2017-04-19 | CN ---
Consultation Report [facility] [address] [place]. [address] NAME: NILDA GUNN : 58 STATUS : ADM IN [facility]#: [id number] AGE: 56 ADM/REG DATE : 04/19/17 MR#: [id number] REPORT SERV DATE: 04/21/17 DICTATED BY: LASHONDA SUGGS DATE: 04/20/17 REPORT STATUS : Draft TRANSCRIBED BY: MODDev DATE: 04/20/17 CONSULTATION DATE OF CONSULTATION: 04/20/2017 REASON FOR CONSULTATION: Consulted for diabetes management. IDENTIFYING DATA: 1. PCP name Kaycee Lopez, nurse practitioner, previously Irma Shepherd nurse practitioner. 2. Art Instructor in the past, Huy Katz M.D., now Bc Welsh M.D. 3. Cardiovascular surgeon in the past, [place]. 4. Surgeon, in the past Wing Anderson III. 5. Orthopedist in the past Dr. [place] Robles. HISTORY OF PRESENT ILLNESS: This is a pleasant 56-year-old, female with a history of coronary artery disease, peripheral arterial disease, diabetes uncontrolled in the past with hemoglobin A1cs ranging from 11 to 14, hypertension, COPD, PE in 2012 after having back surgery. The patient is presently admitted for acute coronary syndrome with a non-STEMI, recent stent this year in March of 2017, for which the patient failed to retrieve her dual anti-platelet medication. She has complained of pain x3 days and presented with a troponin greater than [address] Bc Welsh. She is status post on 04/19/2017 left heart catheterization with left ventriculogram, selective coronary arteriography, saphenous vein graft harvest, and left internal mammary arteriography. Presently, the hospitalist group is consulted for diabetes management. On previous presentations, the patient has been uncontrolled relating to her diabetes. Her hemoglobin A1cs have ranged from 11 to 14. Her hemoglobin A1c in February of 2017 this year was 11.2. The patient's history was obtained through interview with the patient coupled with [facility] of [facility], [employer], application development consultant notes, and medical records on this admission. PAST MEDICAL HISTORY: 1. Ear infections. 2. Myopia. 3. High cholesterol. 4. AR in 2007 and 2010. 5. NSTEMI with EF of 20% to 25%, presently, the EF is approximately 30% per cardiac cath on 04/19/2017. 6. PID with post bilateral iliac stents. 7. MRSA. 8. Acute kidney injury. 9. Anxiety. 10.Systolic congestive heart failure. 11.Diabetes type 2, uncontrolled. Consultation Report [facility] [address] [place]. [address] NAME: NILDA GUNN : 58 STATUS : ADM IN PAT#: [id number] AGE: 56 ADM/REG DATE : 04/19/17 MR#: [id number] REPORT SERV DATE: 04/21/17 DICTATED BY: LASHONDA SUGGS DATE: 04/20/17 REPORT STATUS : Draft TRANSCRIBED BY: MODDev DATE: 04/20/17 12.Bronchitis. 13.Pneumonia, several times. 14.COPD. 15.Pulmonary embolus in 2012 after the patient had back surgery. 16.Menopause. 17.Spinal stenosis with surgery in 2012. 18.Left wrist fracture. HOME MEDICATION: 1. Aspirin 81 mg p.o. daily. 2. Lipitor 20 mg p.o. at bedtime. 3. Bumex 2 mg p.o. twice a day. 4. Coreg 6.25 mg p.o. twice a day. 5. NovoLog 25 units subcu before meals. 6. Tresiba FlexTouch U-100 pen 45 units subcu daily which is a new medication for her at home. 7. Tradjenta 5 mg p.o. daily which is also a new medication for her at home. 8. Magnesium oxide 400 mg p.o. at bedtime. 9. Metformin 1000 mg p.o. twice a day. 10.Systane solution one drop ophthalmically 3 times a day p.r.n. for eye dryness. 11.Potassium chloride 20 mEq p.o. twice a day. 12.A sample inhaler that she received at home 1 puff daily for which the name is unknown. ALLERGIES: TO: 1. GLYBURIDE. 2. GLIPIZIDE. 3. ZOCOR. 4. THE PATIENT HAS AN INTOLERANCE TO ASPIRIN THAT IS NOT COATED. SHE HAS NAUSEA AND VOMITING BUT SHE IS NOT ALLERGIC TO ASPIRIN. SOCIAL HISTORY: The patient is and smokes 1 pack per day and has smoked for 40 years. No alcohol or illicit drug use. She has one daughter who lives with her. She is a retired nurse, and she is also a blues tyler. She lives in an apartment, uses a cane at home to ambulate. Upon this admission, she had difficulty previously obtaining her dual anti-platelet medication, and she states she has limited funds for medications. FAMILY HISTORY: 1. Positive for Alzheimer's dementia. 2. Mother had breast cancer and is at 77 years old and also had coronary artery disease. 3. Father had bladder cancer and is at 63 years old. 4. She has a sibling, a sister who is positive for hypertension and one brother who she states is healthy. SURGICAL HISTORY: Consultation Report [address] [place]. [address] NAME: NILDA GUNN : 58 STATUS : ADM IN [facility]#: [id number] AGE: 56 ADM/REG DATE : 04/19/17 MR#: [id number] REPORT SERV DATE: 04/21/17 DICTATED BY: LASHONDA SUGGS DATE: 04/20/17 REPORT STATUS : Draft TRANSCRIBED BY: MILA DATE: 04/20/17 1. Spinal surgery 2012. 2. Left wrist fracture with hardware surgery in 2006 which she had an ORIF of the left wrist. 3. Cholecystectomy in 1997. 4. Tubal ligation in 1992. 5. Right eye laser surgery. 6. Tonsillectomy in 1977. 7. x2 in 1985 and in 1992. 8. Cardiac cath. She had several, one in 2007, 2010, and 2014, and she had a stent placement noted on 2016. 9. CABG in October 2015. 10.Right ear surgery x5. 11.Left anterior prepatellar bursa and left dorsal small toe irrigation and debridement, 08/22/2014. 12.Left groin abscess with debridement x2, August of 2015 and again in September 2015. REVIEW OF SYSTEMS: Review of systems are negative other than what is included in HPI. The patient is alert and oriented x3. She has no shortness of breath. No nausea or vomiting. No abdominal pain. No chest pain. No fever. Displays no confusion or agitation. Presently, her blood sugar is 95. She was hypoglycemic earlier and dropped to a blood sugar of 60. PHYSICAL EXAMINATION: VITAL SIGNS: From today blood pressure 101/51, respiratory rate 14, heart rate 70, temperature 98.8, O2 saturation 93% on room air. GENERAL: This is an obese 56-year-old, female, resting in bed. No acute distress, has her daughter at bedside. NEURO: Her head is atraumatic, normocephalic. She is alert and oriented x3. Cranial nerves intact. Mood is appropriate. NECK: Supple. Trachea is midline. No JVD noted. No obvious thyromegaly or lymphadenopathy. EENT: Sclerae are nonicteric. Pupils are equal and reactive to light. Her nares are patent. Her mucous membranes are moist. Her tongue is midline without deviation. Her soft palate rises equally with phonation. CHEST: No pain with palpation. LUNGS: Clear to auscultation bilaterally. She displays normal respiratory effort. No increased work of breathing with conversation. CARDIOVASCULAR: S1, S2 with no obvious murmurs, rubs, or gallops. She is on telemetry and is displaying a sinus rhythm with a rate at 92. ABDOMEN: Soft, nontender. Bowel sounds are active. No palpable organomegaly. EXTREMITIES: Normal distal pulses. No calf tenderness. No edema. She presently has her TEDs off, and we have encouraged her to put them back on. SKIN: Warm and dry. No unusual rashes, lesions. Normal color and turgor. PSYCH: The patient is pleasant and cooperative. She does get tearful when she talks about she is in the hospital but she cannot afford certain medications because of financial Consultation Report [address] [place]. [address] NAME: NILDA GUNN : 58 STATUS : ADM IN [facility]#: [id number] AGE: 56 ADM/REG DATE : 04/19/17 MR#: [id number] REPORT SERV DATE: 04/21/17 DICTATED BY: LASHONDA SUGGS DATE: 04/20/17 REPORT STATUS : Draft TRANSCRIBED BY: MILA DATE: 04/20/17 concerns. SURGICAL WOUND SITE: Dressing to her right groin is clean, dry, and intact. LABORATORY DATA: Sodium 138, potassium 4.3, chloride 105, BUN 26, creatinine 1.04. GFR 69, glucose 229, calcium 8.4. Magnesium 1.8. White blood cell 8.9, hemoglobin 11.3, hematocrit 34.9, platelets 174, INR 1.2. Troponin 6.55 for which she presented on admission with a troponin of 9.87. Blood sugars have ranged from 313, 229, 274, 187, 60, 95. On 04/20/2017, the patient had an ECG that showed sinus rhythm, occasional PVCs, which was an abnormal EKG and a rate at 84. The patient had a cardiac cath on 04/19/2017 that showed an LVEF of 30%, multi-vessel coronary artery disease and moderate left ventricular systolic dysfunction for which Cardiology states they will treat her medically. ASSESSMENT AND PLAN: 1. Diabetes type 2. Uncontrolled. The patient states that she will check her blood sugars usually once a day sometimes two or three. She has a new prescription at home for Tradjenta, Tresiba for which she has not used very long. She is on metformin as well as Levemir. Presently, her hemoglobin A1c is 11.2 in February of 2017. Her Tradjenta, Tresiba, metformin is on hold. We will continue her Levemir 22 units b.i.d. She is already on an 1800 ADA diet. We will change her preprandial medications at meals to NovoLog 10 units before meals which she previously was on 25 before meals but she has bottomed out on her glucose to 60. We will continue her Levemir. We will change her sliding scale insulin to level 2. We will check a hemoglobin A1c in the morning. We will have a natural resources extension educator talk to her regarding diet and monitoring. Kiss Setter Hand to see her regarding financial issues, obtaining her medications specifically antiplatelets that are ordered for her cardiac problems. 2. Hypertension. The patient has a history of coronary artery disease, stents, non STEMI presently on admission as well as previous MIs. Cardiology will manage her medications. Presently, her blood pressure is controlled. 3. Hyperlipidemia. Aware. She is on Lipitor daily that is continued. 4. Chronic obstructive pulmonary disease. Aware. She is presently on room air with O2 saturation 93%. She states she had a sample inhaler at home which the medication is unknown. She has no shortness of breath, and her lungs are clear to auscultation presently, and her oxygenation is greater than 92%. We will continue to monitor and order as needed for COPD flare. The hospitalist group would like to thank you for this consultation. Please let us know if we could be of further assistance. /MILA Lashonda Suggs NP Consultation Report [place] [id number] [address] NAME: NILDA GUNN : 58 STATUS : ADM IN PAT#: [id number] AGE: 56 ADM/REG DATE : 04/19/17 MR#: [id number] REPORT SERV DATE: 04/21/17 DICTATED BY: LASHONDA SUGGS DATE: 04/20/17 REPORT STATUS : Draft TRANSCRIBED BY: MILA DATE: 04/20/17 / [id number] CC: J Carlos Jones NP
[2017-04-19 14:20] LABS: BASOPHILS 0.2 %; BASOPHILS ABSOLUTE 0.02 10/3/uL (0.0-0.16); EOSINOPHILS 0.8 %; EOSINOPHILS ABSOLUTE 0.08 10/3/uL (0.0-0.53); ER CBC TAT 0 Hrs 03 Mins; HEMATOCRIT 34.3 % (36.0-48.0); HEMOGLOBIN 11.4 g/dL (12.0-16.0); IMMATURE GRANULOCYTES 0.2 %; IMMATURE GRANULOCYTES ABSOLUTE 0.02 10/3/uL (0.0-0.11); LYMPHOCYTES 20.8 %; LYMPHOCYTES ABSOLUTE 2.14 10/3/uL (0.67-4.30); MEAN CORPUS HGB CONC 33.2 g/dL (32.0-36.0); MEAN CORPUSCULAR HEMOGLOB 31.5 pg (26.0-34.0); MEAN CORPUSCULAR VOLUME 94.8 fL (80-100); MEAN PLATELET VOLUME 11.6 fL (9.2-13.0); MONOCYTES 9.9 %; MONOCYTES ABSOLUTE 1.02 10/3/uL (0.21-1.20); NEUTROPHILS 68.1 %; NEUTROPHILS ABSOLUTE 6.99 10/3/uL (2.02-8.40); RBC DISTRIBUTION WIDTH 13.5 % (12.0-16.0); RED CELL COUNT 3.62 10/6/uL (4.0-5.6); WHITE BLOOD CELLS 10.3 10/3/uL (4.5-10.5)
[2017-04-19 14:22] LABS: MANUAL DIFF NO %; PLATELET COUNT 206 10/3/uL (150-400)
[2017-04-19 14:30] LABS: INTERNATIONAL NORMAL RATI 1.2 UNITS (-); PARTIAL THROMBO TIME 28.5 SEC (22.5-37.2); PROTIME (NOT ORD) 14.8 SEC (12.0-14.5)
[2017-04-19 14:39] LABS: ALBUMIN 3.1 G/DL (3.5-5.0); BUN (BLOOD UREA NITROGEN) 26 MG/DL (6-23); CALCIUM, SERUM 8.8 MG/DL (8.5-10.4); CHLORIDE, SERUM 105 MMOL/L (96-112); CO2 (CARBON DIOXIDE) 28 MMOL/L (24-34); GFR AFRICAN AMERICAN 72 ML/MIN (>=60); GFR NON AFRICAN AMERICAN 62 ML/MIN (>=60); GLUCOSE, SERUM 313 MG/DL (60-99); POTASSIUM, SERUM 4.4 MMOL/L (3.5-5.3); SGOT(AST) 63 U/L (5-40); SGPT(ALT) 27 U/L (5-65); SODIUM, SERUM 136 MMOL/L (135-148); TOTAL BILIRUBIN 0.4 MG/DL (0-1.2); TOTAL PROTEIN 6.6 G/DL (6.0-8.5)
[2017-04-19 14:42] LABS: ALKALINE PHOSPHATASE 102 U/L (45-117); CHEST PAIN PROFILE TAT 0 Hrs 25 Mins; DIRECT BILIRUBIN 0.1 MG/DL (0.0-0.4); INDIRECT BILIRUBIN(NOT ORDER) 0.3 MG/DL (0.1-0.9); TROPONIN I 9.87 NG/ML (<0.05)
[2017-04-19] MEDS ORDERED: GLUCOPHAGE1000 MG PO (16:38)
[2017-04-19] MEDS ORDERED: COREG6 PO (16:38)
[2017-04-19] MEDS ORDERED: BUM2 PO (16:39)
[2017-04-19] MEDS ORDERED: LIPITOR20 PO (16:39)
[2017-04-19] MEDS ORDERED: KLOR-CON M2020 MEQ PO (16:40)
[2017-04-19] MEDS ORDERED: NOVOLOG SC (16:41)
[2017-04-19] MEDS ORDERED: MAGOX4 PO (16:41)
[2017-04-19] MEDS ORDERED: SYSTANE OPH (16:42)
[2017-04-19] MEDS ORDERED: HALF81 PO (16:42)
[2017-04-19] MEDS ORDERED: TRESIBA FL100 UNIT/1 SC (16:45)
[2017-04-19] MEDS ORDERED: TRADJENTA5 MG PO (16:45)
[2017-04-19] MEDS ORDERED: INCRUSE ELLI62.5 MCG INH (16:48)
[2017-04-20 05:30] LABS: BASOPHILS 0.2 %; BASOPHILS ABSOLUTE 0.02 10/3/uL (0.0-0.16); EOSINOPHILS ABSOLUTE 0.09 10/3/uL (0.0-0.53); HEMATOCRIT 34.9 % (36.0-48.0); HEMOGLOBIN 11.3 g/dL (12.0-16.0); IMMATURE GRANULOCYTES 0.2 %; IMMATURE GRANULOCYTES ABSOLUTE 0.02 10/3/uL (0.0-0.11); LYMPHOCYTES 21.4 %; LYMPHOCYTES ABSOLUTE 1.91 10/3/uL (0.67-4.30); MEAN CORPUS HGB CONC 32.4 g/dL (32.0-36.0); MEAN CORPUSCULAR HEMOGLOB 31.5 pg (26.0-34.0); MEAN CORPUSCULAR VOLUME 97.2 fL (80-100); MEAN PLATELET VOLUME 11.8 fL (9.2-13.0); MONOCYTES 12.1 %; MONOCYTES ABSOLUTE 1.08 10/3/uL (0.21-1.20); NEUTROPHILS 65.1 %; NEUTROPHILS ABSOLUTE 5.81 10/3/uL (2.02-8.40); PLATELET COUNT 174 10/3/uL (150-400); RBC DISTRIBUTION WIDTH 13.7 % (12.0-16.0); RED CELL COUNT 3.59 10/6/uL (4.0-5.6); WHITE BLOOD CELLS 8.9 10/3/uL (4.5-10.5)
[2017-04-20 05:36] LABS: MANUAL DIFF NO %
[2017-04-20 05:40] LABS: BUN (BLOOD UREA NITROGEN) 26 MG/DL (6-23); CALCIUM, SERUM 8.4 MG/DL (8.5-10.4); CHLORIDE, SERUM 105 MMOL/L (96-112); CHOL/HDL RATIO(NOT ORDER) 3.6 (0-5); CHOLESTEROL 128 MG/DL (< 200); CO2 (CARBON DIOXIDE) 27 MMOL/L (24-34); CREATININE 1.04 MG/DL (0.55-1.02); GFR AFRICAN AMERICAN 69 ML/MIN (>=60); GFR NON AFRICAN AMERICAN 60 ML/MIN (>=60); HDL CHOLESTEROL 36 MG/DL (> 49); LDL CHOLESTEROL 67 MG/DL (< 130); NON-HDL CHOLESTEROL 92 MG/DL (< 160); POTASSIUM, SERUM 4.3 MMOL/L (3.5-5.3); SODIUM, SERUM 138 MMOL/L (135-148)
[2017-04-20 05:42] LABS: GLUCOSE, SERUM 229 MG/DL (60-99); TRIGLYCERIDE 127 MG/DL (< 150)
[2017-04-20 06:36] LABS: SGPT(ALT) 24 U/L (5-65)
[2017-04-20 06:37] LABS: TROPONIN I 6.55 NG/ML (<0.05)
[2017-04-21 05:58] LABS: BASOPHILS 0.2 %; BASOPHILS ABSOLUTE 0.02 10/3/uL (0.0-0.16); EOSINOPHILS 0.6 %; EOSINOPHILS ABSOLUTE 0.05 10/3/uL (0.0-0.53); HEMOGLOBIN 10.1 g/dL (12.0-16.0); IMMATURE GRANULOCYTES 0.2 %; IMMATURE GRANULOCYTES ABSOLUTE 0.02 10/3/uL (0.0-0.11); LYMPHOCYTES 22.4 %; LYMPHOCYTES ABSOLUTE 1.99 10/3/uL (0.67-4.30); MEAN CORPUS HGB CONC 33.8 g/dL (32.0-36.0); MEAN CORPUSCULAR HEMOGLOB 32.1 pg (26.0-34.0); MEAN CORPUSCULAR VOLUME 94.9 fL (80-100); MEAN PLATELET VOLUME 11.7 fL (9.2-13.0); MONOCYTES 10.2 %; MONOCYTES ABSOLUTE 0.91 10/3/uL (0.21-1.20); NEUTROPHILS 66.4 %; NEUTROPHILS ABSOLUTE 5.91 10/3/uL (2.02-8.40); PLATELET COUNT 182 10/3/uL (150-400); RBC DISTRIBUTION WIDTH 13.5 % (12.0-16.0); RED CELL COUNT 3.15 10/6/uL (4.0-5.6); WHITE BLOOD CELLS 8.9 10/3/uL (4.5-10.5)
[2017-04-21 05:59] LABS: HEMATOCRIT 29.9 % (36.0-48.0); MANUAL DIFF NO %
[2017-04-21 06:10] LABS: CALCIUM, SERUM 8.3 MG/DL (8.5-10.4); CHLORIDE, SERUM 103 MMOL/L (96-112); CO2 (CARBON DIOXIDE) 27 MMOL/L (24-34); GFR AFRICAN AMERICAN 42 ML/MIN (>=60); GFR NON AFRICAN AMERICAN 37 ML/MIN (>=60); GLUCOSE, SERUM 185 MG/DL (60-99); POTASSIUM, SERUM 4.1 MMOL/L (3.5-5.3); SODIUM, SERUM 136 MMOL/L (135-148)
[2017-04-21 06:11] LABS: BUN (BLOOD UREA NITROGEN) 39 MG/DL (6-23); CREATININE 1.56 MG/DL (0.55-1.02)
== END 2017-04-21 11:42 | disposition home or self-care (01) | DRG 281 ==
LOC: ER 12:39 → 5NO 18:10 → SSU2 19:39 → CVICU 22:16 → 1SO 04-20 11:51
PROVIDERS: Emergency Medicine; Internal Medicine Cardiovascular Disease
PROC: 4A023N7 Measurement of Cardiac Sampling and Pressure, Left Heart, Percutaneous Approach (ICD-10-PCS; principal; 2017-04-19)
PROC: B2111ZZ Fluoroscopy of Multiple Coronary Arteries using Low Osmolar Contrast (ICD-10-PCS; 2017-04-19)
PROC: B2131ZZ Fluoroscopy of Multiple Coronary Artery Bypass Grafts using Low Osmolar Contrast (ICD-10-PCS; 2017-04-19)
PROC: B2181ZZ Fluoroscopy of Left Internal Mammary Bypass Graft using Low Osmolar Contrast (ICD-10-PCS; 2017-04-19)
PROC: B2151ZZ Fluoroscopy of Left Heart using Low Osmolar Contrast (ICD-10-PCS; 2017-04-19)
DX: T82.855A Stenosis of coronary artery stent, initial encounter (principal); I21.4 Non-ST elevation (NSTEMI) myocardial infarction; I50.22 Chronic systolic (congestive) heart failure; I11.0 Hypertensive heart disease with heart failure; E11.65 Type 2 diabetes mellitus with hyperglycemia; I25.10 Atherosclerotic heart disease of native coronary artery without angina pectoris; Y83.8 Other surgical procedures as the cause of abnormal reaction of the patient, or of later complication, without mention of misadventure at the time of the procedure; T45.526A Underdosing of antithrombotic drugs, initial encounter; E78.5 Hyperlipidemia, unspecified; I49.3 Ventricular premature depolarization; E78.00 Pure hypercholesterolemia, unspecified; G47.33 Obstructive sleep apnea (adult) (pediatric); F41.9 Anxiety disorder, unspecified; J44.9 Chronic obstructive pulmonary disease, unspecified; F17.210 Nicotine dependence, cigarettes, uncomplicated; Y92.9 Unspecified place or not applicable; Z79.4 Long term (current) use of insulin; Z91.128 Patient's intentional underdosing of medication regimen for other reason; Z86.711 Personal history of pulmonary embolism; Z79.82 Long term (current) use of aspirin; Z91.14 Patient's other noncompliance with medication regimen; Z86.14 Personal history of Methicillin resistant Staphylococcus aureus infection; Z82.49 Family history of ischemic heart disease and other diseases of the circulatory system; Z80.3 Family history of malignant neoplasm of breast; Z80.52 Family history of malignant neoplasm of bladder; Z98.890 Other specified postprocedural states; Z95.1 Presence of aortocoronary bypass graft
CPT/HCPCS: 71010; 71275; 80048; 80061; 80076; 82962; 83036; 83690; 83735; 84460; 84484; 85025; 85347; 85610; 85730; 87641; 93005; 93459; 96365; 99152; 99153; 99285; A9270-GY; C1769; C1894; J0583; J2250; J2405; J3010; Q9967